=== PATIENT | male | born 1960 | race Caucasian/White ===

== ENCOUNTER → 2017-09-30 | Outpatient (CLI) | payer OTHER ==
[2017-09-30 14:32] LABS: HEMATOCRIT 39.7 % (42.0-52.0); HEMOGLOBIN 13.3 gm/dL (14.0-18.0); MCH 32.8 pg (26.0-34.0); MCHC 33.6 g/dL (28.0-37.0); MCV 97.6 fL (80.0-100.0); MPV 7.3 fl. (7.2-11.1); RBC 4.07 mil/uL (4.50-6.00); RDW-CV 13.7 % (10.5-14.5); WBC 5.7 thou/uL (4.0-11.0)
[2017-09-30 15:00] LABS: ALBUMIN 4.2 g/dL (3.4-5.0); ALKALINE PHOSPHATASE 47 U/L (46-116); ANION GAP 8 mmol/L (7-16); BUN 34 mg/dL (7-18); CALCIUM 9.1 mg/dL (8.5-10.1); CHLORIDE 102 mmol/L (98-107); CHOLESTEROL 310 mg/dL (<200); CO2 29 mmol/L (21-32); CREATININE 0.8 mg/dL (0.6-1.3); GLUCOSE 103 mg/dL (70-99); HDL CHOLESTEROL 58 mg/dL (>40); LDL CHOLESTEROL 231 mg/dL (<100); SGOT 28 U/L (15-37); SGPT 33 U/L (30-65); SODIUM 139 mmol/L (136-145); TC:HDL 5.3 Ratio (Not establshd); TOTAL BILIRUBIN 0.6 mg/dL (<0.1-1.0); TRIGLYCERIDE 105 mg/dL (<150); VLDL 21 mg/dL (<40)
[2017-09-30 15:31] LABS: SERUM ASSESSMENT Clear
[2017-10-02 02:07] LABS: GLYCOHEMOGLOBIN (HGB A1C) 5.3 % (4.8-5.6)
== END ==
LOC: M.LAB 10:39
PROVIDERS: Family Medicine
DX: I10 Essential (primary) hypertension (principal); E78.2 Mixed hyperlipidemia; E87.6 Hypokalemia; H81.09 Meniere's disease, unspecified ear

== ENCOUNTER 2018-04-08 19:36 | Inpatient (IN) | payer OTHER ==
[~2018-04-08] VITALS: Ht 177.8 cm; Wt 86.2 kg
[2018-04-08 19:57] VITALS: BP 149/96
[2018-04-08] MEDS ORDERED: HYDROCHLOROTHIA25 M2 PO (20:01)
[2018-04-08] MEDS ORDERED: CELEXA40 MG PO (20:02)
[2018-04-08] MEDS ORDERED: LOPRESSOR25 PO (20:03)
[2018-04-08] MEDS ORDERED: HYDROCODONE-AP1 EAC6 PO (21:02)
[2018-04-08 22:48] LABS: ABSOLUTE BASOPHILS 0.1 thou/uL (0.0-0.2); ABSOLUTE EOSINOPHILS 0.2 thou/uL (0.0-0.7); ABSOLUTE LYMPHOCYTES 2.7 thou/uL (0.8-5.3); ABSOLUTE MONOCYTES 0.6 thou/uL (0.0-1.2); ABSOLUTE NEUTROPHILS 2.9 thou/uL (1.6-8.1); BASOPHILS 1.3 %; EOSINOPHILS 2.4 %; HEMATOCRIT 36.1 % (42.0-52.0); HEMOGLOBIN 12.1 gm/dL (14.0-18.0); LYMPHOCYTES 41.9 %; MCH 32.9 pg (26.0-34.0); MCHC 33.6 g/dL (28.0-37.0); MONOCYTES 9.3 %; MPV 8.2 fl. (7.2-11.1); NUCLEATED RBCS 0 /100WBC; PLATELET COUNT* 273 thou/uL (150-400); POLYS 45.1 %; RBC 3.69 mil/uL (4.50-6.00); RDW-CV 14.1 % (10.5-14.5); WBC 6.3 thou/uL (4.0-11.0)
[2018-04-08 23:52] LABS: ANION GAP 10 mmol/L (7-16); BUN 17 mg/dL (7-18); CALCIUM 8.6 mg/dL (8.5-10.1); CHLORIDE 105 mmol/L (98-107); CO2 28 mmol/L (21-32); CREATININE 0.9 mg/dL (0.6-1.3); GLUCOSE 94 mg/dL (70-99); POTASSIUM 4.1 mmol/L (3.5-5.1); SODIUM 143 mmol/L (136-145)
[2018-04-08 23:59] LABS: ALBUMIN 3.8 g/dL (3.4-5.0); ALKALINE PHOSPHATASE 52 U/L (46-116); SGOT 31 U/L (15-37); SGPT 36 U/L (30-65); TOTAL BILIRUBIN 0.2 mg/dL (<0.1-1.0); TROPONIN-I LEVEL <0.06 ng/mL (<0.06)
[2018-04-09] VITALS (8 sets, daily range): BP systolic 110–171; BP diastolic 60–96
--- NOTE | 2018-04-09 01:19 | NUR ---
PT ARRIVED ABOUT 2350, A&Ox4. VITALS STABLE. PT SPLINT ON R ANKLE IS CLEAN, DRY AND INTACT. PERSONAL BELONGINGS IN ROOM WITH PT. ORTHO CONSULT CALLED IN ER, NPO SINCE MIDNIGHT. UP WITH ASSIST USING CRUTCHES/WALKER. IV IN L HAND PATENT, SL. ADMIT ASSESSMENT COMPLETE. FALL PRECAUTIONS IN PLACE. WILL CONTINUE TO MONITOR.
--- NOTE | 2018-04-09 05:04 | NUR ---
PT REMAINED A&Ox4 THROUGHOUT SHIFT. VITALS STABLE. IV IN L HAND PATENT, SL. REMAINED NPO SINCE MIDNIGHT. PAIN CONTROLLED WITH FENTANYL. SPLINT ON R ANKLE IS CLEAN, DRY AND INTACT. UP WITH ASSIST TO BATHROOM USING WALKER/CRUTCHES. ORTHO CONSULT IN AM, CALLED. FALL PRECAUTIONS IN PLACE. HOULRY ROUNDING COMPLETE. CALL LIGHT WITHIN REACH. WILL CONTINUE TO MONITOR.
--- NOTE | 2018-04-09 10:29 | NUR ---
PT ALERT AND ORIENTED X 4. IV PATENT. SPLINT ON RLE-C/D/I. RECEIVED FENTANYL FOR PAIN CONTROL. NPO SINCE MIDNOC. CONSENT SIGNED. NOTIFIED DR. FOSTER OF ELEVATED BP. NEW ORDERS RECEIVED. PT TO PROCEDURE @ 1025 BY BED.
--- NOTE | 2018-04-09 15:35 | EKG ---
[place] [address] ELECTROCARDIOGRAM REPORT Name: CLAUDETTE SHERMAN Room: [address] ADM IN M.R.#: [id number] Admission: 04/08/18 Attend Phys: Cruz Quiros MD Discharge: Date of : 62 Report #: [id number] THIS REPORT FOR: //name// [facility] ED Test Date: 2018-04-08 Test Time: 22:45:06 Pat Name: CLAUDETTE SHERMAN Department: Room: [facility] Gender: Medicaid Service Coordinator: Ana STINSON : 1960 Requested By: Epifanio Rosales Order Number: [id number] MD: Elieser Loyola Measurements Intervals [place] Rate: 80 P: 62 W[place]: 157 QRS: 63 QRSD: 93 T: 43 QT: 378 QTc: 436 Interpretive Statements Sinus rhythm No previous ECG available for comparison Electronically Signed On 04-09-2018 15:35:33 FORM CARPENTER by Elieser Loyola [email or web address] <ELECTRONICALLY SIGNED> By: Elieser Loyola MD, [facility] 04/09/18 1535 2245 2245 Elieser Loyola MD, FACC /EPI
--- NOTE | 2018-04-09 16:09 | NUR ---
SPOKE TO THE PATIENT TO DISCUSS HOME SITUATION, DISCHARGE PLANNING, AND TO INFORM OF THE ROLE OF CM. PATIENT INDEPENDENT AND ACTIVE. PATIENT REQUEST ASSISTANCE WITH DME (WALKER AND KNEE SCOOTER). D/C DESK CLERKS SUPERVISOR SPOKE TO [place] WITH PROVIDER MAGGIE TO HAVE HER CHECK PATIENT'S BENEFITS. [place] INFORMS THAT IT IS OK TO DISPENSE WALKER TO THE PATIENT. P.T. INFORMED AND DISPENSED WALKER. D/C DESK CLERKS SUPERVISOR PROVIDED PATIENT WITH [employer] INFO FOR RENTAL OF KNEE SCOOTER. PATIENT IN AGREEMENT. PATIENT TO D/C TOMORROW. CM WILL REMAIN AVAILABLE TO ASSIST AND FOLLOW NEEDED.
[2018-04-09] MEDS ORDERED: PERCOCET PO (17:45)
--- NOTE | 2018-04-09 18:22 | NUR ---
PT RETURNED TO UNIT @ 1348. PT HAS NOT C/O PAIN SINCE RETURN. DENIES NAUSEA TOLERATED DIET. NON-WEIGHT BEARING TO RLE. PARTICIPATED WITH THERAPY IN AFTERNOON. PROVIDED WITH WALKER-PREFERS TO USE OF CRUTCHES. DRESSING ON RLE-C/D/I. HOURLY ROUNDS MAINTAINED. CALL LIGHT WITHIN REACH.
[2018-04-10 03:52] LABS: HEMOGLOBIN 11.4 gm/dL (14.0-18.0); MCH 32.9 pg (26.0-34.0); MCHC 33.6 g/dL (28.0-37.0); MCV 97.8 fL (80.0-100.0); MPV 8.2 fl. (7.2-11.1); RBC 3.47 mil/uL (4.50-6.00); WBC 8.2 thou/uL (4.0-11.0)
[2018-04-10 04:00] VITALS: BP 124/71
--- NOTE | 2018-04-10 05:05 | NUR ---
PT REMAINED A&Ox4 THROUGHOUT SHIFT. VITALS STABLE. IV IN L HAND PATENT, SL. DRESSING CLEAN, DRY AND INTACT. PAIN CONTROLLED WITH NORCO. UP WITH ASSIST USING WALKER. FALL PRECAUTIONS IN PLACE. HOULRY ROUNDING COMPLETE. CALL LIGHT WITHIN REACH. WILL CONTINUE TO MONITOR.
[2018-04-10 08:00] VITALS: BP 147/77
[2018-04-10 10:48] VITALS: BP 139/91
[2018-04-10 11:02] VITALS: BP 139/91
[2018-04-10 11:48] VITALS: BP 139/91
--- NOTE | 2018-04-10 11:49 | NUR ---
PT IS ALERT AND ORIENTED X 4. REPORTS PAIN 5/10. ADMINISTERED HYDROCODONE FOR PAIN CONTROL. DENIES NAUSEA. UP INDEPENDENTLY WITH WALKER. NON-WEIGHT BEARING ON RIGHT FOOT. DRESSING ON RIGHT LOWER EXTREMITY-C/D/I. PT RECEIVED DISCHARGE INSTRUCTIONS AND PRESCRIPTIONS GIVEN. IV REMOVED. PT LEFT UNIT @ 1130 BY WHEEL CHAIR WITH PERSONAL BELONGINGS TO LEAVE WITH FRIEND BY PRIVATE CAR.
--- NOTE | 2018-04-16 14:44 | OP ---
[address] [address] OPERATIVE REPORT Name: CLAUDETTE SHERMAN Room: [address]#: [id number] Admission: 04/08/18 Attend Phys: Cruz Quiros MD Discharge: 04/10/18 Date of : 62 Report #: [id number] THIS REPORT FOR: //name// CC: Ayan Quiros DATE OF SERVICE: 04/09/2018 PREOPERATIVE DIAGNOSIS: Right lateral malleolus fracture with displacement. POSTOPERATIVE DIAGNOSIS: Right lateral malleolus fracture with displacement. PROCEDURE: Open reduction and internal fixation of right lateral malleolus fracture. SURGEON: Dominick Abreu II, DO. JAVA MANAGER: AVERY Pineda. ANESTHESIA: Per operative record. ESTIMATED BLOOD LOSS: Minimal. ANTIBIOTICS: Per operative record. DRAINS: None. COMPLICATIONS: None. CONDITION OF THE PATIENT: Stable to recovery room. IMPLANTS USED: Eric distal fibular plate with appropriate locking and nonlocking screws. DESCRIPTION OF PROCEDURE: The patient was taken to the operative suite, placed supine on the operating table and given appropriate anesthesia. The patient's affected right leg had a well-padded tourniquet applied to the upper thigh, which was inflated to 200 mmHg after gravity exsanguination for the duration of the procedure. It was placed on bone foam and sterilely prepped and draped. Surgery began by an incision over the lateral aspect of the ankle. The lateral malleolus fracture was evaluated with C-arm, both AP and lateral directions. It was open reduced in appropriate fashion to near anatomic alignment, held with bone reduction forceps. The lateral plate was then applied and secured utilizing locking and nonlocking screws to the lateral cortex. This was visualized in AP and lateral direction to be in excellent position, with excellent reduction of the fracture. Irrigation [place] [address] OPERATIVE REPORT Name: CLAUDETTE SHERMAN Room: [address]#: [id number] Admission: 04/08/18 Attend Phys: Cruz Quiros MD Discharge: 04/10/18 Date of : 62 Report #: [id number] subcutaneous layer was closed with 2-0 Vicryl and running Monocryl stitch and Dermabond and sterile dressing on top. The foot was placed in a posterior splint. The patient was transported to the recovery room in stable condition. Counts were correct throughout the procedure. <ELECTRONICALLY SIGNED> By: Dominick Abreu II, DO 04/16/18 1444 1227 1256Dominick Abreu II, DO /nt
== END 2018-04-10 11:35 | disposition home or self-care (01) | DRG 494 ==
LOC: M.ERS 19:36 → M.ORTHSURG 22:27 → M.TBA-ER 22:27 → M.ORTHSURG 23:43
PROVIDERS: Emergency Medicine Emergency Medical Services; Internal Medicine; ADMIT Family Medicine
PROC: 0QSJ04Z Reposition Right Fibula with Internal Fixation Device, Open Approach (ICD-10-PCS; principal; 2018-04-09)
DX: S82.831A Other fracture of upper and lower end of right fibula, initial encounter for closed fracture (principal); I10 Essential (primary) hypertension; F32.9 Major depressive disorder, single episode, unspecified; Z88.8 Allergy status to other drugs, medicaments and biological substances; W01.0XXA Fall on same level from slipping, tripping and stumbling without subsequent striking against object, initial encounter; Y93.89 Activity, other specified; Y92.89 Other specified places as the place of occurrence of the external cause; Y99.8 Other external cause status; Z79.899 Other long term (current) drug therapy

== ENCOUNTER → 2018-05-11 | Outpatient (CLI) | payer OTHER ==
[~2018-05-11] MED LIST: CELEXA40 MG PO; HYDROCHLOROTHIA25 M2 PO; HYDROCODONE-AP1 EAC6 PO; LOPRESSOR25 PO; PERCOCET PO
== END ==
LOC: M.RAD 10:31
DX: S82.61XD Displaced fracture of lateral malleolus of right fibula, subsequent encounter for closed fracture with routine healing (principal); X58.XXXD Exposure to other specified factors, subsequent encounter; Z72.89 Other problems related to lifestyle

== ENCOUNTER → 2018-08-05 | Outpatient (CLI) | payer OTHER | LOC: M.LAB 14:13 | DX: R76.11 Nonspecific reaction to tuberculin skin test without active tuberculosis (principal) ==

== ENCOUNTER → 2018-11-24 | Outpatient (CLI) | payer BC ==
[2018-11-25 16:09] LABS: RUBEOLA IgG ANTIBODY* <13.5 AU/mL (Immune >16.4)
== END ==
LOC: M.LAB 11:38
PROVIDERS: Family Medicine
DX: Z01.84 Encounter for antibody response examination (principal)

== ENCOUNTER → 2018-12-07 | Day surgery (SDC) | payer BC ==
[~2018-12-07] MED LIST changes: +ASPIR 8181 MG PO; +IRON325 PO; +LIPITOR10 MG PO; +MULTIVITAMINS PO; +NORCO 5-325 TA1 EAC1 PO; +PEPCID20 MG PO; +POTASSIUM GLUCO99 M2 PO
[2018-12-07 06:47] LABS: HEMOGLOBIN 14.7 gm/dL (14.0-18.0); MCHC 34.4 g/dL (28.0-37.0); RBC 4.44 mil/uL (4.50-6.00)
[2018-12-07 06:48] LABS: HEMATOCRIT 42.9 % (42.0-52.0); MCH 33.2 pg (26.0-34.0); MCV 96.6 fL (80.0-100.0); MPV 8.8 fl. (7.2-11.1); RDW-CV 14.1 % (10.5-14.5); WBC 8.2 thou/uL (4.0-11.0)
[2018-12-07 07:00] LABS: CALCIUM 8.8 mg/dL (8.5-10.1); CREATININE 0.9 mg/dL (0.6-1.3); POTASSIUM 4.2 mmol/L (3.5-5.1)
[2018-12-07 07:05] LABS: ALBUMIN 3.9 g/dL (3.4-5.0); TOTAL BILIRUBIN 0.6 mg/dL (<0.1-1.0); TOTAL PROTEIN 7.6 g/dL (6.4-8.2)
--- NOTE | 2018-12-07 16:24 | EKG ---
[place] [address] ELECTROCARDIOGRAM REPORT Name: LANECLAUDETTEElva JAMA Room: [facility]#: [id number] Admission: 12/07/18 Attend Phys: Nicko Devine DO Discharge: Date of : 62 Report #: [id number] THIS REPORT FOR: //name// [facility] Test Date: 2018-12-07 Test Time: 07:22:28 Pat Name: CLAUDETTE SHERMAN Department: Room: Gender: M Senior Storage Administrator: : 1960 Requested By: Nicko Devine Order Number: [id number] MD: Elieser Loyola Measurements Intervals [place] Rate: 53 P: 54 [place]: 152 QRS: 48 QRSD: 90 T: 35 QT: 449 QTc: 422 Interpretive Statements Sinus rhythm Abnormal R-wave progression, early transition Compared to ECG 04/08/2018 22:45:06 No significant changes Electronically Signed On 12-07-2018 16:24:05 CDT by Elieser Loyola [email or web address] <ELECTRONICALLY SIGNED> By: Elieser Loyola MD, [facility] 12/07/18 1624 0722 07 Elieser Loyola MD, FACC /EPI
--- NOTE | 2018-12-08 18:06 | PATH ---
[facility] [address] [place] [address] PATHOLOGY RPT PROCEDURE Name: CLAUDETTE BRENNAN Room: [facility].#: [id number] Admission: 12/07/18 Date of : 62 Discharge: Report #: [id number] Path Case #: [id number] [facility] Accession Number: [id number] . 01 Material submitted: . soft tissue - CORD LIPOMA . 01 Clinical history: . Right inguinal hernia . 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 . (GEO:mmhans; 12/08/2018) [facility] 12/08/2018 1342 Local . 02 Electronically signed: . Pasha Man MD, Pathologist NPI- [id number] . 01 Gross description: . . The specimen is received in formalin, labeled "Claudette Brennan, cord lipoma" and consists of a partially encapsulated segment of yellow adipose tissue measuring 5.3 x 2.8 x 1.0 cm. Sectioning reveals no gross lesions and title insurance sales representative tissue is submitted in A1. (SDY; 12/07/2018) SYU/SYU 12/07/2018 1706 Local . 02 Pathologist provided ICD-10: D17.9 . 02 CPT . 487418 Specimen Comment: A courtesy copy of this report has been sent to Specimen Comment: [phone], . Specimen Comment: Report sent to / DR LLOYD Performed at: 01 [facility] [address] [place] [address] [address], [place], [place] [id number] MD Ayan Cole MD Phone: [phone] Performed at: 02 [facility] [address], [place], [place] [id number] MD Pasha Man MD Phone: [phone]
--- NOTE | 2019-01-12 13:34 | OP ---
[address] [address] OPERATIVE REPORT Name: GARCIACLAUDETTE PRIDE Room: [facility].#: [id number] Admission: 12/07/18 Attend Phys: Nicko Devine DO Discharge: Date of : 62 Report #: [id number] THIS REPORT FOR: //name// CC: Nicko Eckert DO DATE OF SERVICE: 12/07/2018 REFERRING PHYSICIAN: Ayan Eckert DO PREOPERATIVE DIAGNOSIS: Right inguinal hernia. POSTOPERATIVE DIAGNOSIS: Right indirect inguinal hernia. PROCEDURE: Da Jose robotic-assisted laparoscopic right inguinal hernia repair with Bard 3DMax mesh large. ANESTHESIA: General endotracheal and TAP blocks. ESTIMATED BLOOD LOSS: Less than 20 mL. COMPLICATIONS: None. DESCRIPTION OF PROCEDURE: After obtaining proper consents and discussing risks and complications as well as marking him in the preoperative holding area, the patient was taken to the operating room, laid in the supine position, administered general endotracheal anesthetic. He was then prepped and draped in the usual sterile fashion. A timeout was performed, we confirmed the appropriate patient and procedure. Preoperative antibiotics had been given. SCDs were in place. He had also had TAP blocks placed by anesthesia after induction of general anesthesia. We then made a small supraumbilical skin incision with a #11 scalpel blade. This was carried down through the skin into the subcutaneous tissue using electrocautery for hemostasis. Once the fascia was encountered, it was incised along the midline, grasped and elevated with Hector clamps. The peritoneum was then identified. It was bluntly opened using a hemostat. We were easily able to visualize into the peritoneal cavity. At this point, we placed 2-0 Vicryl sutures in a [id number] fashion to secure the Da Jose robotic camera port, which was then inserted and insufflation was begun. Once insufflation was complete, full visual inspection of the anterior abdominal organs was performed. This revealed no significant gross abnormalities. There were no adhesions from the patient's previous abdominal surgeries identified. The small and large bowel, which could be visualized, appeared normal as did the liver, stomach and all of the other anterior abdominal organs. We did identify a small indentation in the right groin; however, this did not appear to be a very large hernia [place] [address] OPERATIVE REPORT Name: CLAUDETTE SHERMAN EVITA Room: [facility].#: [id number] Admission: 12/07/18 Attend Phys: Nicko Devine, DO Discharge: Date of : 62 Report #: [id number] appeared completely normal. Because the patient did have pain and was found to have a hernia on the right side on examination, we went ahead and proceeded with a right inguinal hernia repair. I opened the preperitoneal space from the median umbilical ligament laterally to the anterior superior iliac spine. I began my dissection all the way down to the pubic ramus and below that and then medially to the pubic symphysis. We identified Jesu's ligament and then dissected more laterally along the spermatic cord. We identified where the direct space was, also identified the iliac vessels. I then dissected the peritoneum away from the spermatic cord and then continued the dissection laterally all the way out to the ASIS. We then identified what appeared to be a fairly large cord lipoma. This cord lipoma was reduced all the way back from the indirect space and then the cord lipoma was excised using electrocautery. It was then placed in the peritoneum for removal later. I then assured that there was a large enough space for a large Bard 3DMax mesh, which was then inserted. I sutured the mesh in place to Jesu's ligament and then also medial and lateral to the inferior epigastric vessels using a 2-0 Vicryl suture. We then closed the peritoneal flap using a running 2-0 absorbable V-Loc suture. I then rescrubbed and went back to the patient's bedside where the robot was undocked and the cord lipoma was removed through the 12 mm right upper quadrant trocar site. We then removed all the needles as well. The 12 mm trocar was removed and we used a PMI closure device to close the fascia of this right upper quadrant incision. The remaining trocars were removed. The umbilical fascia was closed using the 2 previously placed 0 Vicryl sutures plus 2 additional 0 Vicryl sutures. Skin incisions were all closed using 4-0 Monocryl subcuticular stitches. Mastisol, Steri-Strips, sterile OpSite and pressure dressings were placed. The patient was awakened in the operating room and transported to recovery room in stable condition. Sponge, needle and instrument counts were all correct at the end of the procedure. <ELECTRONICALLY SIGNED> By: Nicko Devine DO 01/12/19 1334 0955 [id number] Devine DO /nt
== END | disposition home or self-care (01) ==
LOC: M.SUR 06:26
PROVIDERS: Surgery
DX: K40.90 Unilateral inguinal hernia, without obstruction or gangrene, not specified as recurrent (principal); Z79.899 Other long term (current) drug therapy; Z88.2 Allergy status to sulfonamides; Z88.8 Allergy status to other drugs, medicaments and biological substances; Z79.82 Long term (current) use of aspirin